=== PATIENT | female | born 1980 | race Caucasian/White ===

== ENCOUNTER 2024-04-26 14:41 | Observation (INO) | payer BC, SELFPAY ==
[2024-04-26] VITALS (9 sets, daily range): BP systolic 125–145; BP diastolic 75–99; PULSE 93–107; RESP 17–20; TEMP 37–37.1; O2SAT 92–100; BMI 50.8
--- NOTE | ~2024-04-26 | XR_ITS ---
XR chest 1V portable Ordering provider: Aneudy Marina MD History: 44 years Female with . seizure . Comparison: None. FINDINGS: MEDIASTINUM: The cardiac silhouette is slightly enlarged. Right Port-A-Cath with the tip overlying burks perior vena cava. Congestive pool. LUNGS: No effusions or pneumothorax. Bilateral interstitial changes. OTHER: No free air under the diaphragm. IMPRESSION: Cardiomegaly with cardiac decompensation and pulmonary edema. Overlying pneumonitis cannot be exclude d. Reviewed, dictated and finalized at location A. IMPRESSION: Cardiomegaly with cardiac decompensation and pulmonary edema. Overlying pneumon itis cannot be excluded.
--- NOTE | ~2024-04-26 | CT_ITS ---
EXAMINATION: CTA brain carotid DATE: 04/27/2024 16:25 INDICATION: Seizure. TECHNIQUE: Computed tomographic angiography (CTA) of the head was performed without and with 100 mL O mnipaque-350 intravenous contrast. CTA of the neck was performed with intravenous contrast. Automated exposure control and iterative reconstruction technique were employed. The dose-length product was 1 735.84 mGy-cm. Maximum intensity projection and volume rendered 3D-reconstructions were created by elayne uriarte technologist on a separate workstation. COMPARISON: Head CT 04/26/2024 FINDINGS: HEAD CTA: There is no intracranial hemorrhage, acute infarction, or abnormal intracranial mass lesion . The ventricles are normal in size. The orbits are normal. The paranasal sinuses are clear. The mast oid air cells are normal. Left vertebral artery is dominant. There is no significant stenosis of basi lar artery or the posterior cerebral arteries. The posterior communicating arteries are normal. There is no significant stenosis of the intracranial internal carotid arteries or anterior or middle cereb ral arteries. Anterior communicating artery is normal. There is no aneurysm. NECK CTA: The visualized portions of the lung apices demonstrate airspace and groundglass opacities. There is a right internal jugular port with tip not included. There are no pathologically enlarged ly mph nodes. There is no significant stenosis of the vertebral arteries. There is no significant plaque in the proximal internal coronary arteries. There is 0% stenosis of the proximal right internal alarcon tid artery relative to normal distal artery lumen diameter (NASCET criteria). There is 0% stenosis of the proximal left internal carotid artery relative to normal distal artery lumen diameter. There is moderate cervical spondylosis. IMPRESSION: 1. Normal brain. No aneurysm or significant intracranial arterial stenosis 2. 0% stenosis of the proximal internal carotid arteries relative to normal distal artery lumen diame ters (NASCET criteria). 3. Bilateral lung disease, consistent with chronic lung disease versus pneumonia. Reviewed, dictated and finalized at location A. IMPRESSION: 1. Normal brain. No aneurysm or significant intracranial arterial stenosis 2. 0% stenosis of the proximal internal carotid arteries relative to normal dis hiwot artery lumen diameters (NASCET criteria). 3. Bilateral lung disease, consistent with chronic lung disease versus pneumoni a.
--- NOTE | ~2024-04-26 | CT_ITS ---
CT brain wo con Ordering provider: Aneudy Marina MD History: 44 years Female with . seizure . Comparison: None. Technique: CT of the head without contrast. Radiation reduction technique utilized.The dose-length product was 681 mGy-cm FINDINGS: BRAIN PARENCHYMA AND CSF SPACES: No midline shift, mass effect or hemorrhage. The brain parenchyma a nd CSF spaces are otherwise normal. VISUALIZED PARANASAL SINUSES: Well aerated. MASTOIDS: Well aerated. BONES: The bones appear intact. SOFT TISSUES: Visualized nasopharynx is normal. Superficial soft tissues are normal. Left TM joint osteoarthritic changes. IMPRESSION: No acute intracranial findings. Reviewed, dictated and finalized at location A.
--- NOTE | 2024-04-26 14:58 | ECG_ITS ---
Test Date: 2024-04-26 14:58:12 Measurements Intervals [place] Rate: 105 P: 35 [place]: 187 QRS: 14 QRSD: 94 T: 17 QT: 346 QTc: 458 Interpretive Statements SINUS TACHYCARDIA POSSIBLE LEFT ATRIAL ENLARGEMENT DELAYED PRECORDIAL R/S TRANSITION BASELINE ARTIFACT- I, II, III, AVR, AVF BORDERLINE ECG No previous ECG available for comparison Electronically Signed On 04-27-2024 08:17:03 CDT by Jd Sanchez D.O.
[2024-04-26] MEDS: SODIUM CHLORIDE 0.9% IV 1,000 ML 999 ML IV CONT (15:05)
--- NOTE | 2024-04-26 15:08 | ED.SEIZURE ---
HPI - Seizure General Chief Complaint: Seizure Stated Complaint: Seizure Time Seen by Provider: 04/26/24 14:51 History of Present Illness HPI Narrative: Patient is a 44-year-old female with history of bipolar disorder who presents ER with seizure. Patient just moved here from [place]. She is living with her cousin. Her mother had down in [place] and patient became homeless and family is trying to help her out by moving her up here. She has been without her Klonopin over the last week. She has become shaky and tremulous over the last 3 days. Today she had a seizure with incontinence of urine. She has had a 2nd seizure in the ER. For seizure lasted 1 minute, 2nd seizure lasted 30 seconds. No history of previous seizure. Related Data Allergies Allergy/AdvReac Type Severity Reaction Status Date / Time doxycycline AdvReac Unknown Verified 04/26/24 14:57 Review of Systems Review of Systems: ROS unobtainable: Yes unobtainable due to mental status (Postictal or seizing) [facility] Past Medical History Medical History (Updated 04/26/24 @ 17:30 by Aneudy Marina MD) Bipolar disorder Breast cancer Surgical History Surgical History (Updated 04/26/24 @ 15:45 by Aneudy Marina MD) H/O mastectomy History of insertion of tunneled central venous catheter (CVC) with port Exam Narrative: GENERAL: ill-appearing, morbidly obese, and in no acute distress. HEAD: Normocephalic, atraumatic. EYES: PERRL and EOMI. ENT: Mucous membranes moist. NECK: Supple. CHEST: Clear to auscultation. No respiratory distress. HEART: Regular rate and rhythm. Normal peripheral pulses. ABDOMEN: Soft, nontender, nondistended. EXTREMITIES: Normal range of motion. No edema. SKIN: Warm, dry, no rash. NEURO: Alert and oriented x3. Course Course Emergency Course: 1545: Patient is now awake alert orient x3. She reports she has had seizure several years ago due to Klonopin withdrawal. 1728: Admit to hospitalist service. Antibiotics for aspiration. Neurology consulted, no epileptics only support withdrawal symptoms. Vital Signs Vital signs: Vital Signs Pulse Rate 107 H 04/26/24 14:44 Respiratory Rate 20 04/26/24 14:44 Blood Pressure 140/75 04/26/24 14:44 Pulse Oximetry 92 04/26/24 14:44 Oxygen Delivery Room Air 04/26/24 14:44 Temperature 98.6 F 04/26/24 15:14 Pulse Rate 94 04/26/24 17:01 Respiratory Rate 17 04/26/24 17:01 Blood Pressure 145/99 H 04/26/24 17:01 Pulse Oximetry 94 04/26/24 17:14 Oxygen Delivery Room Air 04/26/24 17:14 Oxygen Flow Rate 15 04/26/24 15:50 MDM - Seizure Lab Data 04/26/24 15:16 04/26/24 15:16 Labs: Lab Results 04/26/24 04/26/24 Range/Units 15:03 15:16 WBC 13.0 H (4.5-10.0) K/mm3 RBC 5.23 (4.2-5.4) M/mm3 Hgb 16.2 H (12.0-15.0) g/dL Hct 49.0 H (37.0-47.0) % MCV 93.7 (80-100) fl MCH 31.0 (26-34) pg MCHC 33.1 (32-36) g/dl RDW 14.0 (11.5-14.5) % Plt Count 244 (150-375) k/mm3 MPV 10.5 H (7.4-10.4) fl Immature Gran % (Auto) 0.4 (0-0.5) % Neut % (Auto) 72.8 (45.5-73.1) % Lymph % (Auto) 20.1 (18.3-44.2) % Sharkey % (Auto) 4.9 (2.6-8.5) % Eos % (Auto) 1.2 (0-4.4) % Baso % (Auto) 0.6 (0.2-1.2) % Lymph # (Auto) 2.61 (0.9-3.2) K/mm3 Sharkey # (Auto) 0.6 (0.1-0.6) K/mm3 Eos # (Auto) 0.2 (0-0.3) K/mm3 Baso # (Auto) 0.1 (0.0-0.1) K/mm3 Abs Immat Gran (auto) 0.05 H (0.00-0.031) K/mm3 Absolute Neuts (auto) 9.5 H (1.3-6.7) K/mm3 Absolute Nucleated RBC 0.000 (0.0-0.012) K/mm3 Nucleated RBC % 0.0 (0.0-0.2) % Methemoglobin 0.3 (0-1.5) %THb Sodium 135 L (137-145) mmol/L Potassium 3.7 (3.4-5.0) mmol/L Chloride 98 (98-107) mmol/L Carbon Dioxide 28 (22-30) mmol/L Anion Gap 9 (4-12) mmol/L BUN 16 (7-17) mg/dL Creatinine 0.90 (0.7-1.0) mg/dL Estim Creat Clear Calc 91 ml/min Estimated GFR > 60 (59 - ) Gl
[2024-04-26] MEDS: LORazepam INJ (*CRX) 2 MG/ML VIAL (15:10)
[2024-04-26 15:11] LABS: Alveolar/Arterial O2 Gradient 57.2 mmHg; Base Excess ABG 0.4 mEq/l (+/-2.0); Carboxyhemoglobin 4.5 % THb (0-2.0); Fractional Inspired Oxygen 28 %; HCO3 ABG 26.2 mEq/l (22.0-26.0); Methemoglobin ABG 0.3 %THb (0-1.5); Oxygen Content ABG 20.9 %vol (16.0-22.0); Oxygen Saturation ABG 96.4 % (95.0-100.0); Oxyhemoglobin 91.8 % THb (90.0-100.0); PCO2 ABG 46.1 mmHg (35.0-45.0); PO2 FiO2 Ratio Arterial Blood 3.14 %; Reduced Hemoglobin 3.4 %THb (0-5.0); Total Hemoglobin 16.2 g/dL (12.0-18.0); pH ABG 7.372 (7.350-7.450)
[2024-04-26 15:12] LABS: Device NASAL CANNULA; Modified Allen's Test Pass; Site Drawn LEFT RADIAL
--- NOTE | 2024-04-26 15:16 | PC.NURSE ---
while this RN was initiating PIV, pt started seizing. NRB applied with 15L, suction set up. made aware. Dr. Marina at bedside. Pt stopped seizing, lasted approx 30 seconds. VORB to give 1mg ativan IVP stat. Assessed airway, any injury, seizure precautions continued.
[2024-04-26 15:24] LABS: Basophils Absolute Auto 0.1 K/mm3 (0.0-0.1); Basophils Percent Auto 0.6 % (0.2-1.2); Eosinophils Absolute Auto 0.2 K/mm3 (0-0.3); Eosinophils Percent Auto 1.2 % (0-4.4); Hemoglobin 16.2 g/dL (12.0-15.0); Immature Granulocyte Absolute 0.05 K/mm3 (0.00-0.031); Immature Granulocyte Percent A 0.4 % (0-0.5); Lymphocytes Absolute Auto 2.61 K/mm3 (0.9-3.2); Lymphocytes Percent Auto 20.1 % (18.3-44.2); Mean Corpuscular HGB Conc 33.1 g/dl (32-36); Mean Corpuscular Volume 93.7 fl (80-100); Mean Platelet Volume 10.5 fl (7.4-10.4); Monocytes Absolute Auto 0.6 K/mm3 (0.1-0.6); Monocytes Percent Auto 4.9 % (2.6-8.5); Neutrophils Absolute Auto 9.5 K/mm3 (1.3-6.7); Neutrophils Percent Auto 72.8 % (45.5-73.1); Platelet Count Result 244 k/mm3 (150-375); Red Blood Count 5.23 M/mm3 (4.2-5.4)
[2024-04-26 15:30] LABS: Appearance Urine Clear (Clear); Blood Urine Negative (Negative); Color Urine Yellow (Yellow); Glucose Urine UA Negative (Negative); Ketones Urine Negative (Negative); Nitrate Urine Negative (Negative); Protein Urine 2+ mg/dL (Negative); Specific Grav Ur > 1.030 (1.001-1.035); pH Urine 5.5 (5.0-9.0)
[2024-04-26 15:31] LABS: Add Urine Microscopic? YES; Bilirubin Urine Negative (Negative); Leukocyte Esterase Ur Negative LEU/UL (Negative); Urobilinogen Urine 0.2 mg/dL (<2.0)
[2024-04-26 15:42] LABS: Alanine Aminotransferase 19 U/L (6-35); Alkaline Phosphatase 68 U/L (38-126); Amphetamine Screen Urine Negative (Negative); Anion Gap 9 mmol/L (4-12); Aspartate Amino Transferase 25 U/L (14-36); Barbiturate Screen Urine Negative (Negative); Benzodiazepines Screen Urine Negative (Negative); Bilirubin,Total 0.5 mg/dL (0.2-1.3); Blood Urea Nitrogen 16 mg/dL (7-17); Cannabinoid Screen Urine Positive (Negative); Carbon Dioxide 28 mmol/L (22-30); Chloride 98 mmol/L (98-107); Cocaine Screen Urine Negative (Negative); Estimated CRCL calculation 91 ml/min; Estimated Glomerular Filt Rate > 60; Ethanol < 10 mg/dL (<10); Glucose 125 mg/dL (65-110); Methadone Screen Urine Negative (Negative); Opiate Screen Urine Negative (Negative); Phencyclidine Screen Urine Negative (Negative); Potassium 3.7 mmol/L (3.4-5.0); Sodium 135 mmol/L (137-145)
[2024-04-26 17:13] LABS: NT Pro B Type Natriuretic Pept 21 pg/mL (19.9-100)
--- NOTE | 2024-04-26 17:30 | PM.IMHP ---
H&P: HPI History of Present Illness Date/Time: 04/26/24 19:00 Chief Complaint: Seizure. Narrative: This is a 44-year-old female with history of bipolar disorder, anxiety, and breast cancer presented to the emergency department via EMS for evaluation after seizure. She is able to provide some history however remains a bit somnolent and her cousin, Mauricio, at bedside provides additional information. The patient lives in [place] and has been homeless for about 1 year. She was previously staying with a friend but more recently has been staying in a vacant home. She called Mauricio several weeks ago asking for help and he and his brought her to stay with them. She has apparently been doing well however ran out of her clonazepam 8 days ago and since that time she has been exhibiting symptoms withdrawal including restlessness, tremors, and increased anxiety. Today she had a witnessed tonic-clonic seizure with urinary incontinence lasting about 90 seconds. She had another witnessed seizure in the emergency department lasting approximately 30 seconds. At the time my evaluation she remains somnolent but is arousable and is alert and oriented. She admits that she sometimes takes her clonazepam 2 times a day depending on how she feels and she also states that she has had benzodiazepine withdrawal seizures before under similar circumstances. She denies vertigo, vision changes, fever, cold and flu symptoms, chest pain, shortness of breath, cough, myalgias, nausea, vomiting, diarrhea, and dysuria. In the ED: She had another witnessed seizure as detailed above. Labs were significant for a WBC count of 13.0, hemoglobin 16.2, sodium 135,, glucose 125. Urine drug screen was positive for cannabinoids. Brain CT showed no acute intracranial finding. Chest x-ray showed slightly enlarged cardiac silhouette with findings of pulmonary edema and possible overlying pneumonitis. She received lorazepam, normal saline bolus, and antibiotics to cover for possible aspiration pneumonitis. Review of Systems Review of Systems: 12 systems were reviewed and are negative except for as per HPI. [facility] Past Medical History Medical History (Updated 04/26/24 @ 22:29 by Fior Hernandez PA-C) Anxiety Bipolar disorder Breast cancer Surgical History Surgical History (Updated 04/26/24 @ 22:26 by Fior Hernandez PA-C) History of bilateral mastectomy History of insertion of tunneled central venous catheter (CVC) with port Social History Social History (Updated 04/26/24 @ 22:31 by Fior Hernandez PA-C) Social History: Surrogate medical decision maker: Mauricio Herzog, cousin. Code status: Full code. Smoking packs per day: 1 Smoking cigarettes per day: 20.0 Smoking status: Current every day smoker Tobacco type: cigarettes Second hand tobacco smoke exposure: Yes Alcohol intake: never Substance use: never Do You Feel Safe in your Home?: Yes Lack of Transportation: No Lack of Food: Never True Current Housing: I Have Housing Concerned About Future Housing: No Difficulty Paying Gas/Electric Bills: No Difficulty Paying for Meds: No Currently Unemployed: No Education: High School Diploma/GED Difficulty w/ Childcare or Family Care: No Additional living arrangements comments: Currently living with her 1st cousin in his . She has a 28-year-old son but they have not been in communication for of few months. Additional occupation/education comments: Nurse. Spiritual care concerns: No Meds Home Medications and Allergies Home Medications Medication Instructions Recorded Confirmed Type albuterol sulfate 90 mcg/actuation 1 puff inhalation QID PRN 04/26/24 04/26/24 History aerosol inhaler Shortness Of Breath amlodipine 5 mg tablet 5 mg PO DAILY 04/26/24 04/26/24 History celecoxib 100 mg capsule 100 mg PO BID 04/26/24 04/26/24 History chlorpromazine 100 mg tablet 100 mg PO TID 04/26/24 04/26/24 History clonazepam 2 mg tablet 2 m
[2024-04-26] MEDS: AZITHROMYCIN 500 MG/NS 250 ML 500 MG/250 ML BAG 250 MG IVPB (17:42)
[2024-04-26] MEDS: SODIUM CHLORIDE 0.9% IV 1,000 ML 125 ML IV CONT (18:11)
[2024-04-26] MEDS: CLINDAMYCIN 900 MG/D5W 50 ML 900 MG/50 ML PIGGYBACK 50 MG IVPB (18:12)
--- NOTE | 2024-04-26 18:31 | ADMGEN ---
This patient, Ruma Lopez, was admitted to Medical Room 341-01. Patient/family oriented to hospital policies and general routines including ID bracelet, bed and alarms, visiting hours, pain management, procedures, bathroom and other care routines, personal items, smoking policy, room service/diet, and visiting hours. Information on how to activate the Rapid Response Team has been discussed. Patient/Family are encouraged to report perceived risks to care and to ask questions if they do not understand what they are told or what they should do.
[2024-04-26] MEDS: clonazePAM (*CRX) 0.5 MG TABLET 2 MG PO (18:49)
[2024-04-26] MEDS: QUEtiapine FUMARATE 100 MG TABLET 300 MG PO (23:23)
[2024-04-26] MEDS: PRAZOSIN HCL 1 MG CAPSULE PO (23:23)
[2024-04-26] MEDS: ACETAMINOPHEN 325 MG TABLET 650 MG PO (23:25)
[2024-04-27] VITALS (7 sets, daily range): BP systolic 129–149; BP diastolic 81–82; PULSE 80–92; RESP 16–18; TEMP 36.6; O2SAT 97
[2024-04-27] MEDS: SODIUM CHLORIDE 0.9% IV 1,000 ML 125 ML IV CONT (03:55)
--- NOTE | 2024-04-27 07:28 | PM.IMPN ---
Progress Note: A&P Assessment and Plan (1) Seizure: Code(s): R56.9 - Unspecified convulsions Status: Acute Assessment and Plan: Patient experienced 2 tonic clonic seizures, witnessed, the first last approximately 60 seconds and then second 30 seconds. The patient normally takes Klonopin per recently ran out of her prescription and has not had any medication for the last 8 days. Seizure precautions Klonopin was resumed p.r.n. Ativan for seizure activity head CT with no acute intracranial findings MRI was ordered but the patient has a piercing that she is not willing to remove for MRI. Dr Stafford has recommended CT to rule out aneurysm as possible cause of seizure. If CT brain is normal she can d/c home. neurology has been consulted and recommendations are appreciated (2) Benzodiazepine withdrawal: Code(s): F13.939 - Sedative, hypnotic or anxiolytic use, unspecified with withdrawal, unspecified Status: Acute Assessment and Plan: see above (3) Abnormal chest x-ray: Code(s): R93.89 - Abnormal findings on diagnostic imaging of other specified body structures Status: Acute Assessment and Plan: concern for pneumonitis after seizure with aspiration likely chest x-ray concerning for pulmonary edema or overlying pneumonitis right chest Port-A-Cath is seen on imaging. will follow-up for why she has this she received clindamycin, azithromycin, and Rocephin in the emergency room continue with Augmentin for 7 days (4) Bipolar disorder: Code(s): F31.9 - Bipolar disorder, unspecified Status: Acute Assessment and Plan: Resume home medications Plan DVT prophylaxis: SCD Glycemic control: na Code Status: Full code Disposition: 44-year-old female who presents to the emergency room after having a witnessed seizure at home. The patient normally takes Klonopin and has been without medication for the last 8 days. Suspected benzodiazepine withdrawal seizure. Patient has been admitted for Neurology consult and further monitoring. Klonopin has been resumed. She was started on oral antibiotics for aspiration pneumonia. Medication reconciliation obtained via the following: Nurse completed on admission The file time of this note does not necessarily represent the time the patient was seen. Subjective Date/time seen: 04/27/24 07:28 Interval history: This is a 44-year-old female with history of bipolar disorder, anxiety, and breast cancer presented to the emergency department via EMS for evaluation after seizure. 04/27: She is doing well. Denies any complaints other than slowed recollection of short term memory. She has had her EEG. Review of Systems Review of Systems: 12 systems were reviewed and are negative except for as per HPI. All systems reviewed & are unremarkable except as noted in HPI and below Exam Narrative: General: well appearing, appears stated age. HEENT: normocephalic, atraumatic. Mucous membranes moist. EOMI, PERRLA, bilateral sclera anicteric, no conjunctival injection. Neck supple without JVD, lymphadenopathy, or bruit. Respiratory: clear to auscultation bilaterally. No rales/rhonic/wheezes. Cardiovascular: Regular rate and rhythm, normal S1-S2 upon auscultation. No murmurs, rubs, or clicks. PMI is nondisplaced, capillary refill less than 3 second. Abdomen: Soft, round, no pulsatile masses, nondistended and nontender. No rebound, no guarding. No CVA tenderness, no hepatosplenomegaly. Bowel sounds present to all four quadrants. No high pitch or tinkling sounds, resonant to percussion. Extremities: No cyanosis, clubbing, or edema present. Pulses are palpable 2/2. Active ROM to all four extremities. Neuro: Alert and orientated x 4. PERRLA. Cranial nerves 2-12 intact without focal deficit. Skin: Warm, dry, and intact
[2024-04-27 07:29] LABS: Hematocrit 45.3 % (37.0-47.0); Hemoglobin 14.7 g/dL (12.0-15.0); Mean Corpuscular HGB Conc 32.5 g/dl (32-36); Mean Corpuscular Hemoglobin 30.4 pg (26-34); Mean Corpuscular Volume 93.8 fl (80-100); Mean Platelet Volume 10.3 fl (7.4-10.4); Platelet Count Result 176 k/mm3 (150-375); Red Blood Count 4.83 M/mm3 (4.2-5.4); White Blood Count 6.2 K/mm3 (4.5-10.0)
[2024-04-27 07:35] LABS: Alanine Aminotransferase 18 U/L (6-35); Albumin Level 3.5 g/dL (3.5-5.1); Alkaline Phosphatase 58 U/L (38-126); Anion Gap 6 mmol/L (4-12); Aspartate Amino Transferase 26 U/L (14-36); Bilirubin,Total 0.9 mg/dL (0.2-1.3); Blood Urea Nitrogen 14 mg/dL (7-17); Calcium 8.5 mg/dL (8.4-10.2); Carbon Dioxide 25 mmol/L (22-30); Chloride 102 mmol/L (98-107); Estimated CRCL calculation 101 ml/min; Estimated Glomerular Filt Rate > 60; Glucose 81 mg/dL (65-110); Magnesium 2.3 mg/dL (1.6-2.3); Potassium 3.8 mmol/L (3.4-5.0); Sodium 133 mmol/L (137-145)
[2024-04-27] MEDS: AMOXICILLIN/CLAVULANATE K 875-125 MG TAB 1 TABLET PO (08:36)
[2024-04-27] MEDS: DULoxetine HCL 60 MG CAPSULE.DR PO (08:36)
[2024-04-27] MEDS: PANTOPRAZOLE 40 MG TABLET PO (08:36)
[2024-04-27] MEDS: CELECOXIB 100 MG CAPSULE PO (08:36)
[2024-04-27] MEDS: hydroCHLOROthiazide 25 MG TABLET PO (08:36)
[2024-04-27] MEDS: amLODIPine BESYLATE 5 MG TABLET PO (08:36)
[2024-04-27] MEDS: FLUTICASONE PROPIONATE 0.05% NA SPR 16 GM BTL (*BKC) 2 SPRAY NASAL (08:37)
[2024-04-27] MEDS: chlorproMAZINE HCL 25 MG TABLET 100 MG PO ×2 (08:37→14:29)
--- NOTE | 2024-04-27 12:09 | WPDNEURCNPN ---
Assessment and Plan Assessment and plan (1) Seizure: Code(s): R56.9 - Unspecified convulsions Status: Acute (2) Benzodiazepine withdrawal: Code(s): F13.939 - Sedative, hypnotic or anxiolytic use, unspecified with withdrawal, unspecified Status: Acute (3) Bipolar disorder: Code(s): F31.9 - Bipolar disorder, unspecified Status: Acute Plan The patient had 2 seizures on a course of possibility of withdrawal from Klonopin appear to be predominant suspicion nevertheless in view of mentation I would still recommend an MRI of the brain EEG to investigated further. Either that she already has been started on Klonopin and also added Seroquel or quetiapine. We should follow-up with results of these investigations. Consult date: 04/27/24 HPI: Ruma Lopez is a 44 year old female with history bipolar disorder anxiety homelessness Klonopin dependent breast cancer presented emergency room ambulance service after having had see patient tells me that she has ran out of her Klonopin and was tremulous 3 days. Cousin was present at the time this evaluation. The patient was living in [place] as has been homeless for about a year. She was previously staying with a friend but more recently she has been staying in a vacant home. She ran out of her clonazepam 8 days ago. Since that time she has been exhibiting symptoms of withdrawal increase restlessness tremor and increased anxiety. Apparently she has had a witnessed tonic clonic seizure with urinary incontinence. The spell lasted 90 seconds. She had another spell in the emergency department lasting for 30 seconds. Currently she denies any other pertinent symptoms. Review of Systems Constitutional: Constitutional: Denies chills, Denies fever(s) and Denies weight loss Eyes: Eyes: Denies diplopia and Denies loss of vision ENT: Denies dizziness, Denies hearing loss and Denies tinnitus Cardiovascular: Cardiovascular: Denies chest pain, Denies syncope and Denies dyspnea Respiratory: Respiratory: Denies cough, Denies dyspnea and Denies wheezing Gastrointestinal: Gastrointestinal: Denies abdominal pain, Denies change in bowel habits and Denies vomiting Genitourinary: Genitourinary: Denies urinary incontinence Musculoskeletal: Musculoskeletal: Denies arthralgias and Denies joint swelling Integumentary/Breasts: Skin/Breast: Denies new lesions and Denies rash Neurologic: Reports as per HPI, Denies dizziness, Denies syncope and Denies loss of vision Psychiatric: Psychiatric: Denies anxiety and Denies depression Endocrine: Endocrine: Denies cold intolerance and Denies heat intolerance Hematologic/Lymphatic: Hematologic/Lymphatic: Denies easy bleeding and Denies easy bruising Allergic/Immunologic: Allergic/Immunologic: Denies no additional allergic/immunologic complaints and Denies wheezing PMFSH Past Medical History Medical History Anxiety Bipolar disorder Breast cancer Surgical History Surgical History History of bilateral mastectomy History of insertion of tunneled central venous catheter (CVC) with port Social History Social History Social History: Surrogate medical decision maker: Mauricio Herzog, cousin. Code status: Full code. Smoking packs per day: 1 Smoking cigarettes per day: 20.0 Smoking status: Current every day smoker Tobacco type: cigarettes Second hand tobacco smoke exposure: Yes Alcohol intake: never Substance use: never Do You Feel Safe in your Home?: Yes Lack of Transportation: No Lack of Food: Never True Current Housing: I Have Housing Concerned About Future Housing: No Difficulty Paying Gas/Electric Bills: No Difficulty Paying for Meds: No Currently Unemployed: No Education: High School Diploma/GED Difficulty w/ Childcare or Family Car
--- NOTE | 2024-04-27 16:55 | PM.DS ---
DS: Admitting Diagnosis Discharge Date 04/27/24 Admitting Diagnosis seizure DS: Discharge Diagnosis Discharge Diagnosis (1) Seizure: Code(s): R56.9 - Unspecified convulsions Status: Acute Assessment and Plan: Patient experienced 2 tonic clonic seizures, witnessed, the first last approximately 60 seconds and then second 30 seconds. The patient normally takes Klonopin per recently ran out of her prescription and has not had any medication for the last 8 days. Seizure precautions Klonopin was resumed p.r.n. Ativan for seizure activity head CT with no acute intracranial findings MRI was ordered but the patient has a piercing that she is not willing to remove for MRI. Dr Stafford has recommended CT to rule out aneurysm as possible cause of seizure. If CT brain is normal she can d/c home. neurology has been consulted and recommendations are appreciated (2) Benzodiazepine withdrawal: Code(s): F13.939 - Sedative, hypnotic or anxiolytic use, unspecified with withdrawal, unspecified Status: Acute Assessment and Plan: see above (3) Abnormal chest x-ray: Code(s): R93.89 - Abnormal findings on diagnostic imaging of other specified body structures Status: Acute Assessment and Plan: concern for pneumonitis after seizure with aspiration likely chest x-ray concerning for pulmonary edema or overlying pneumonitis right chest Port-A-Cath is seen on imaging. will follow-up for why she has this she received clindamycin, azithromycin, and Rocephin in the emergency room continue with Augmentin for 7 days (4) Bipolar disorder: Code(s): F31.9 - Bipolar disorder, unspecified Status: Acute Assessment and Plan: Resume home medications Plan DVT prophylaxis: SCD Glycemic control: na Code Status: Full code Disposition: 44-year-old female who presents to the emergency room after having a witnessed seizure at home. The patient normally takes Klonopin and has been without medication for the last 8 days. Suspected benzodiazepine withdrawal seizure. Patient has been admitted for Neurology consult and further monitoring. Klonopin has been resumed. She was started on oral antibiotics for aspiration pneumonia. Medication reconciliation obtained via the following: Nurse completed on admission The file time of this note does not necessarily represent the time the patient was seen. DS: Summary Hospital Course Reason for hospitalization: seizure Hospital Course: This is a 44-year-old female with history of bipolar disorder, anxiety, and breast cancer presented to the emergency department via EMS for evaluation after seizure. She is able to provide some history however remains a bit somnolent and her cousin, Mauricio, at bedside provides additional information. The patient lives in [place] and has been homeless for about 1 year. She was previously staying with a friend but more recently has been staying in a vacant home. She called Mauricio several weeks ago asking for help and he and his brought her to stay with them. She has apparently been doing well however ran out of her clonazepam 8 days ago and since that time she has been exhibiting symptoms withdrawal including restlessness, tremors, and increased anxiety. Today she had a witnessed tonic-clonic seizure with urinary incontinence lasting about 90 seconds. She had another witnessed seizure in the emergency department lasting approximately 30 seconds. At the time my evaluation she remains somnolent but is arousable and is alert and oriented. She admits that she sometimes takes her clonazepam 2 times a day depending on how she feels and she also states that she has had benzodiazepine withdrawal seizures before under similar circumstances. She denies vertigo, vision changes, fever, cold and flu symptoms, chest pain,
--- NOTE | 2024-04-29 17:33 | WPDNEUROLOGY ---
Neurology EEG Report General Information Date of Study: 04/27/24 TEST Electroencephalogram DIAGNOSIS benzodiazepine withdrawal seizures CONDITION OF RECORDING bedside according EEG NUMBER [id number] CLINICAL HISTORY history of 2 seizures the day before this recording. She has been on Klonopin for some time and she was not able to get it for few days and thought to have withdrawal seizures. EEG DESCRIPTION The background activity consists of posterior dominant rhythm in theta range at approximately 6 hertz with an amplitude of 15-35 micro fold. This appears moderately formed. Anteriorly low amplitude mixed frequency activity was seen however muscle tension artifacts appeared frequently in the frontotemporal region. Patient did not progress to stage 2 sleep. Hyperventilation or photic stimulation were not performed. IMPRESSION This is an abnormal EEG due to presence of mild diffuse background slowing suggestive of generalized encephalopathy. No focal or paroxysmal epileptiform abnormality was seen. Muscle tension artifacts were seen in frontotemporal region frequent during the recording. If clinically relevant a follow-up study in future may be helpful.
== END 2024-04-27 17:30 | disposition home or self-care (01) ==
LOC: ANHED 17:30 → ANH3MED 17:34
PROVIDERS: Physician Assistant; Admitting Provider Internal Medicine; Emergency Provider Emergency Medicine; Visit Provider Nurse Practitioner Acute Care
DX: R56.9 Unspecified convulsions (principal); F13.939 Sedative, hypnotic or anxiolytic use, unspecified with withdrawal, unspecified; R93.89 Abnormal findings on diagnostic imaging of other specified body structures; F31.9 Bipolar disorder, unspecified; Z85.3 Personal history of malignant neoplasm of breast; Z59.01 Sheltered homelessness
CPT/HCPCS: 36415; 36600; 70450; 70496; 70498; 71045; 80053; 80307; 81001; 82375; 82805; 82810; 83050; 83735; 83880; 84443; 85025; 85027; 93005; 94667; 95816; 96361; 96374; 99285; A9270; G0378; J0456; J0696; J2060; J7030; Q9967

== ENCOUNTER 2024-11-15 17:29 | Emergency (ER) | payer OTHER, SELFPAY ==
--- NOTE | ~2024-11-15 | XR_ITS ---
XR foot LT min 3V Ordering provider: Rosemarie Ramirez APRN History: . left foot pain . Comparison: None. FINDINGS: BONES: Fracture at the base of the second metatarsal bone is noted. No significant displacement. JOIN T SPACES: Narrowing of the proximal and distal interphalangeal joints. No tarsal coalition. SOFT TISSUES: Normal. IMPRESSION: Fracture of the base of the second metatarsal bone. Polyarticular osteoarthritic changes. Reviewed, dictated and finalized at location A.
--- NOTE | ~2024-11-15 | XR_ITS ---
XR ankle LT min 3V Ordering provider: Rosemarie Ramirez APRN History: . left ankle pain . Comparison: None. FINDINGS: BONES: No acute fracture or dislocation. JOINT SPACES: The ankle mortise is normal. SOFT TISSUES: Normal. IMPRESSION: No acute osseous abnormality left ankle. Reviewed, dictated and finalized at location A.
[2024-11-15 18:13] VITALS: BP 153/109; PULSE 115; RESP 16; TEMP 36.7; O2SAT 96
--- NOTE | 2024-11-15 18:30 | ED_ITS ---
HPI - Extremity Injury (Lower) General Chief Complaint: Extremity Injury, Lower Stated Complaint: Left Foot Pain Time Seen by Provider: 11/15/24 18:25 Source: patient and RN notes reviewed Mode of arrival: ambulatory Limitations: no limitations History of Present Illness HPI Narrative: 44-year-old female presents to [facility] complaining of left ankle and foot injury. Patient said she was in the shower yesterday when she slipped and fell. She denies hitting her head or any loss of consciousness. Denies any neck or back pain. She states she is able to bear weight on her left foot, however she has been using a cane to help her ambulate. She says there is swelling bruising to her foot. Significant past medical history includes hypertension and bipolar disorder. She is not on any blood thinners. Related Data Home Medications ?Medication ?Instructions ?Recorded ?Confirmed ?Last Taken ?Type fluoxetine 10 mg tablet 30 mg PO ONCE 11/02/24 11/02/24 Unknown History fluoxetine 10 mg capsule mg 11/15/24 Unknown History fluoxetine 20 mg capsule mg 11/15/24 Unknown History prazosin 2 mg capsule mg 11/15/24 Unknown History zaleplon 5 mg capsule mg 11/15/24 Unknown History Allergies Allergy/AdvReac Type Severity Reaction Status Date / Time duloxetine (From Cymbalta) AdvReac Intermediate Anxiety Verified 11/15/24 17:50 Review of Systems Review of Systems: CONSTITUTIONAL: Denies fever, chills, or sweats. EYES: Denies visual changes, redness, or discharge. ENT: Denies rhinorrhea, congestion, sore throat, or otalgia. CARDIOVASCULAR: Denies chest pain, palpitations, syncope, lightheadedness or edema. RESPIRATORY: Denies cough or dyspnea. GASTROINTESTINAL: Denies abdominal pain, nausea, vomiting, or diarrhea. GENITOURINARY: Denies dysuria or hematuria. SKIN: Denies rash or itching. MUSCULOSKELETAL: Denies back pain, neck pain, joint pain, or myalgia. Positive for Left ankle and foot injury NEUROLOGIC: Denies headache, numbness, dizziness, or weakness. PSYCHIATRIC: Denies anxiety or depression. All other systems reviewed are negative, except as documented in HPI. [facility] Past Medical History Medical History HTN (hypertension), benign Asthma GERD (gastroesophageal reflux disease) Degenerative arthritis of right knee Fibromyalgia Anxiety Breast cancer Bipolar disorder Surgical History Surgical History History of bilateral mastectomy History of insertion of tunneled central venous catheter (CVC) with port Family History Family History Mother Brain cancer Lung cancer Alcoholism Depression Anxiety Father Alcoholism Hypertension Heart problem Social History Social History Social History: Surrogate medical decision maker: Mauricio Herzog, cousin. Code status: Full code. Smoking packs per day: 1 Smoking cigarettes per day: 20.0 Smoking status: Current every day smoker Tobacco type: cigarettes Second hand tobacco smoke exposure: Yes Alcohol intake: never Substance use: never Do You Feel Safe in your Home?: Yes Lack of Transportation: No Lack of Food: Never True Current Housing: I Have Housing Concerned About Future Housing: No Difficulty Paying Gas/Electric Bills: No Difficulty Paying for Meds: No Currently Unemployed: No Education: High School Diploma/GED Difficulty w/ Childcare or Family Care: No Additional living arrangements comments: Currently living with her 1st cousin in his . She has a 28-year-old son but they have not been in communication for of few months. Additional occupation/education comments: Nurse. Spiritual care concerns: No Agree to blood products: No Comments At the time of my signature, I reviewed and agree with the nursing past medical, surgical, social, and family history. There is no relevant family history pertinent to the patient complaint. Exam Narrative: GENERAL: This is a well-nourished, well-developed adult, in no apparent distress. They are non ill-appearing, nontoxic appearing. Patient is obese HEAD: normocephalic, atraumatic. EYES: Sclera clear/white. Vision is grossly intact. Extraocular movements intact. Pupils PERRLA. EARS: External ears normal, Hearing grossly intact. NOSE: External nose normal THROAT: Mucous membranes moist, NECK: Neck supple, non-tender without lymphadenopathy, masses or thyromegaly. No cervical spine point tenderness or crepitus. CARDIOVASCULAR: Regular rate and rhythm RESPIRATORY: Normal respiratory rate, rate breathing is nonlabored. No respiratory distress SKIN: warm, Dry, intact with no suspicious lesions or rash, good texture and turgor. NEURO: awake, alert, and oriented to person, place and time. There were no obvious focal neurologic abnormalities. EXTREMITIES: Left ankle and foot: There is swelling to the dorsal surface of the foot extending into the left ankle. There is tenderness to palpation to the lateral medial ankle and throughout the dorsal surface of the foot. Present is present throughout. Pedal pulses 2+ and palpable. Patient is able to wiggle her toes. Capillary refill is less than 2 seconds. Patient is able to plantar and dorsiflex with pain with movement. Neurovascular status is intact distal to the injury. BACK: Nontender without deformity. No crepitus, no thoracic or lumbar spine point tenderness Course Course Level of Care: [facility] Visit Vital Signs Vital signs: Vital Signs Temperature 98.1 F 11/15/24 18:13 Pulse Rate 115 H 11/15/24 18:13 Respiratory Rate 16 11/15/24 18:13 Blood Pressure 153/109 H 11/15/24 18:13 Pulse Oximetry 96 11/15/24 18:13 Temperature 98.1 F 11/15/24 18:13 Pulse Rate 115 H 11/15/24 18:13 Respiratory Rate 16 11/15/24 18:13 Blood Pressure 153/109 H 11/15/24 18:13 Pulse Oximetry 96 11/15/24 18:13 Reviewed Procedures Orthopedic Splinting/Casting Injury #1: Splinting/Casting Date: 11/15/24 Splinting/Casting Time: 18:42 Side: left Lower Extremity Injury Location: foot Lower Extremity Immobilizer: post-op shoe and Diego wrap Pre-Procedure Neuro Vascular Exam: normal Post-Procedure Neuro Vascular Exam: normal Other Orthopedic Equipment: cane (Patient brought her own cane) Additional Comments: Patient tolerated procedure well MDM - Extremity Injury (Lower) MDM Narrative Medical decision making narrative: Left ankle x-ray is unremarkable for acute findings or fracture. There is a minimally displaced fracture of the base of the 2nd metatarsal bone and osteoarthritic changes to her foot. Patient states she is able to bear weight on her left foot, she will be using a cane to help her ambulate as well. Patient is placed postop shoe along with an Diego wrap to her left ankle. Discussed physical exam findings. Advised supportive measures and signs/symptoms to go to the ER. Pt is appropriate for outpt treatment and f/u. Patient states she does take Celebrex but she would rather take ibuprofen. Patient will stop taking Celebrex and take ibuprofen as needed for pain right now. Patient did not take her blood pressure medications today and her blood pressure was elevated. She is asymptomatic. Patient advised to take her blood pressure medicine when she gets home. She verbalized understanding Differential Diagnosis Differential diagnosis: Likely ankle sprain and strain and other (Foot fracture, toe fracture,, arthritis) Imaging Data Radiologist's impression: FINDINGS: BONES: No acute fracture or dislocation. JOINT SPACES: The ankle mortise is normal. SOFT TISSUES: Normal. IMPRESSION: No acute osseous abnormality left ankle. FINDINGS: BONES: Fracture at the base of the second metatarsal bone is noted. No significant displacement. JOINT SPACES: Narrowing of the proximal and distal interphalangeal joints. No tarsal coalition. SOFT TISSUES: Normal. IMPRESSION: Fracture of the base of the second metatarsal bone. Polyarticular osteoarthritic changes. Critical Care Time Critical Care Time Critical Care Time: No Discharge Plan Discharge Clinical Impression: Metatarsal fracture Patient Disposition: Home Condition: Stable Instructions: Foot Fracture in Adults (ED) Additional Instructions: You have a fracture in her left foot. You may wear the Diego wrap for compression to her left ankle. Please wear the postop shoe while you are walking. You may bear weight as tolerated. You may use her cane to assist with walking. Please follow-up with an orthopedist or process improvement manager for further evaluation. Rest and elevate the leg Apply ice 15-20 minute intervals several times a day. Motrin 600mg every 8 hours, alternate with Tylenol 1000mg every 8 hours as needed. Do not take your Celebrex well taking Motrin. If you have any other concerns or worsening pain, or unable to walk, please go to the ER for further evaluation. Please take your blood pressure medications when you get home. Patient Language: Paraguayan Prescriptions: New ibuprofen 600 mg tablet 600 mg PO Q6H PRN (Reason: pain) Qty: 30 0RF No Action fluoxetine 10 mg capsule zaleplon 5 mg capsule fluoxetine 20 mg capsule prazosin 2 mg capsule fluoxetine 10 mg tablet 30 mg PO ONCE Rx Instructions: administer in the morning and at noon/midday fluticasone propionate 50 mcg/actuation spray,suspension 1 spray INTRANASAL DAILY Qty: 16 5RF Rx Instructions: administer into each nostril pantoprazole 40 mg tablet,delayed release (DR/EC) 40 mg PO QAM Qty: 90 1RF celecoxib [Celebrex] 200 mg capsule 200 mg PO BID Qty: 180 1RF albuterol sulfate 90 mcg/actuation HFA aerosol inhaler 1 puff INHALATION QID PRN (Reason: Shortness Of Breath) Qty: 6.7 0RF amlodipine 5 mg tablet 5 mg PO DAILY Qty: 90 1RF hydrochlorothiazide 12.5 mg tablet 12.5 mg PO DAILY Qty: 90 1RF pregabalin [Lyrica] 25 mg capsule 25 mg PO BID Qty: 60 0RF quetiapine 300 mg Tablet 300 mg PO HS Qty: 30 0RF chlorpromazine 100 mg Tablet 100 mg PO TID Qty: 90 0RF prazosin 1 mg Capsule 1 mg PO HS Qty: 30 0RF zaleplon 10 mg Capsule 10 mg PO HS PRN (Reason: Insomnia) Qty: 30 0RF Rx Instructions: must avoid high-fat meal/food immediately before taking dose Follow-up/Referrals: Mohan Mckinley DPM [Physician] - Gerald Bean MD [Physician] - 3 Days Sofia Dietz DO [Primary Care Provider] - Time of Disposition: 18:48
--- NOTE | 2024-11-15 18:51 | PC.NURSE ---
1835- TITLE SEARCH MANAGER's both discussing plan of care for pt, and due to weight limit of our available crutches, pt would not be safe to have crutches at this time. last accurate taken weight in system was on 11/02/24 here at pmd office and weight was 298 at that time. we didnt weigh pt today due to pain to stand with injured foot.
== END 2024-11-15 18:53 | disposition home or self-care (01) ==
PROVIDERS: PCP Family Medicine
DX: S92.322A Displaced fracture of second metatarsal bone, left foot, initial encounter for closed fracture (principal); W18.2XXA Fall in (into) shower or empty bathtub, initial encounter; I10 Essential (primary) hypertension; J45.909 Unspecified asthma, uncomplicated; M79.7 Fibromyalgia; M17.11 Unilateral primary osteoarthritis, right knee; Z85.3 Personal history of malignant neoplasm of breast; Z90.13 Acquired absence of bilateral breasts and nipples; F41.9 Anxiety disorder, unspecified; F31.9 Bipolar disorder, unspecified; F17.210 Nicotine dependence, cigarettes, uncomplicated
CPT/HCPCS: 73610; 73630; 99214; G0463